=== PATIENT | female | born 1990 | race Caucasian/White ===

== ENCOUNTER 2017-02-14 21:22 | Emergency (ER) | payer SELFPAY ==
[~2017-02-14 21:22] MED LIST: AMBIEN10 M1 PO; ANTIVERT25 MG PO; IBUPROFEN600 M1 PO; INDOMETHACIN25 MG PO; MACROBID 100 M100 M1 PO; NORCO 5-325 TA1 EACH PO; NORCO 5/325 TAB1 TAB PO; PAXIL20 MG PO; PERCOCET 5-3251 EACH PO; TRAMADOL HCL50 MG PO; TRAZODONE50 MG PO; TRINESSA1 EACH PO; ZOLOFT50 M1 PO; [UNRECOGNIZED DRUG - OTHER] PO
[2017-02-14] MEDS ORDERED: CELEXA20 M2 PO (22:29)
[2017-02-14 22:55] LABS: URINE BILIRUBIN NEGATIVE (NEG); URINE BLOOD NEGATIVE (NEG); URINE GLUCOSE (UA) NEGATIVE (NEG); URINE KETONE NEGATIVE (NEG); URINE LEUKOCYTE ESTERASE POSITIVE (NEG); URINE NITRITE NEGATIVE (NEG); URINE PROTEIN NEGATIVE (NEG)
[2017-02-14 22:56] LABS: URINE APPEARANCE HAZY; URINE COLOR YELLOW
[2017-02-14 23:00] LABS: URINE BACTERIA 1+; URINE RBC 0 /[HPF] (0-5)
[2017-02-14 23:11] LABS: BASO % 0.1 % (0-2); EOS % 0.3 % (0-7); HCT-HEMATOCRIT 38.7 % (34.0-49.0); HGB-HEMOGLOBIN 13.5 gm/dl (12.0-15.5); LYMPH % 39.3 % (20-45); LYMPH ABSOLUTE COUNT 2.8 tho/cmm (0.8-4.5); MCH (MEAN CORPUSCULAR HGB) 30.2 pg (28.0-32.0); MCHC MEAN CORPUSCULAR HGB CONC 34.9 % (32.0-36.0); MCV (MEAN CELL VOLUME) 86.6 fl (82.0-96.0); MEAN PLATELET VOLUME 10.6 cmc (9.4-12.4); MONO % 7.9 % (0-12); MONOCYTE ABSOLUTE COUNT 0.6 tho/cmm (0.0-1.2); NEUTROPHIL ABSOLUTE COUNT 3.7 tho/cmm (1.6-8.0); NEUTROPHIL-AUTOMATED 3.7 tho/cmm (1.6-8.0); NEUTROPHILS % 52.4 % (40-80); PLATELET COUNT 210 tho/cmm (150-450); RED BLOOD COUNT 4.47 mil/cmm (4.00-5.20)
[2017-02-14 23:19] LABS: ANION GAP 13 mmol/L (0-20); BLOOD UREA NITROGEN 13 mg/dl (6-24); CALCIUM 8.9 mg/dl (8.5-10.5); CARBON DIOXIDE-VENOUS 22 mmol/L (22-32); CHLORIDE 107 mmol/l (96-110); GLUCOSE 83 mg/dL (70-110); POTASSIUM 3.7 mmol/L (3.7-5.1); SODIUM 138 mmol/L (135-145); eGFR VALUE FOR BLACK >90 mL/Min
[2017-02-15] MEDS ORDERED: NORCO 5-325 TA1 EACH PO (00:25)
== END 2017-02-15 00:30 ==
LOC: EDMED 21:22
PROVIDERS: Emergency Medicine
DX: N83.291 Other ovarian cyst, right side (principal); Z90.721 Acquired absence of ovaries, unilateral
CPT/HCPCS: J1885; J2405